=== PATIENT | female | born 1970 | race Asian ===

== ENCOUNTER 2019-10-25 10:20 | Emergency (ER) | payer MEDICAID ==
[~2019-10-25] VITALS: Ht 152.4 cm; Wt 38.6 kg
[2019-10-25 10:47] VITALS: BP 117/66
[2019-10-25] MEDS ORDERED: diphenhdrAMINE HCL 25 MG CAP PO ONE (11:15)
[2019-10-25] MEDS ORDERED: methylPREDNISolone SOD SUCC 125 MG/2 ML VL IM ONE (11:15)
== END 2019-10-25 12:45 | disposition home or self-care (01) ==
LOC: ER 10:20
DX: R21 Rash and other nonspecific skin eruption (principal); N39.0 Urinary tract infection, site not specified
CPT/HCPCS: 81002; 96372; 99283; J2930

== ENCOUNTER 2021-07-16 14:24 | Emergency (ER) | payer MEDICAID ==
[~2021-07-16] VITALS: Ht 160 cm; Wt 59.0 kg
[2021-07-16 14:27] VITALS: BP 109/69
[2021-07-16] MEDS ORDERED: ONDA-144 PO (19:44)
[2021-07-16] MEDS ORDERED: PERCOT PO (19:44)
== END 2021-07-16 19:41 | disposition home or self-care (01) ==
LOC: ER 14:24
DX: R51.9 Headache, unspecified (principal); V89.2XXA Person injured in unspecified motor-vehicle accident, traffic, initial encounter; Y93.89 Activity, other specified; Y92.89 Other specified places as the place of occurrence of the external cause; Y99.8 Other external cause status
CPT/HCPCS: 70450; 72125